=== PATIENT | male | born 1960 | race Caucasian/White ===

== ENCOUNTER 2018-07-05 02:22 | Emergency (ER) | payer MEDICAID, MEDICARE ==
[2018-07-05] MEDS ORDERED: Clindamycin HCl 150 MG Cap PO ONE ×2 (02:23→04:42)
[2018-07-05] MEDS ORDERED: Ondansetron 8 MG Tab.DIS PO ONE (02:49)
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
[2018-07-05] MEDS ORDERED: HYDROmorphone 2 MG/ML SDV IM ONE (03:32)
[2018-07-05] MEDS ORDERED: Metoclopramide 10 MG/2 ML SDV IM ONE (03:32)
[2018-07-05] MEDS ORDERED: diphenhydrAMINE 50 MG/ML SDV IM ONE (03:35)
[2018-07-05] MEDS ORDERED: Acetaminophen/HYDROcodone 325-5 MG Tab PO ONE (05:00)
[2018-07-05] MEDS ORDERED: Clindamycin HCl 150 MG Cap PO SCH (05:00)
[2018-07-05 05:40] VITALS: BP 152/68
--- NOTE | 2018-07-07 10:54 | CR ---
INDICATION: Left knee pain. Loose hardware, needs replacement, left TKA 2016. LEFT KNEE: Frontal, lateral, and patellar sunrise views of the left knee were obtained and revealed a femorotibial knee arthroplasty with mild hypertrophic changes at the patellar joint surfaces. No gross area of lucency was seen to strongly suggest loosening of the apparatus. There is a very minimal area of lucency anteriorly at the tibial component of the arthroplasty and also along the medial aspect. However, this is relatively minimal and may not be associated with loosening. Loosening could be confirmed, as felt to be clinically necessary, with 3-phase nuclear bone imaging. The study was otherwise unremarkable, except that there is a slight bulge at the suprapatellar bursa, raising question of minimal joint effusion. MTDD
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
== END 2018-07-05 05:25 | disposition home or self-care (01) ==
LOC: FB.ED 02:22
DX: S80.862A Insect bite (nonvenomous), left lower leg, initial encounter (principal); R20.3 Hyperesthesia; F32.9 Major depressive disorder, single episode, unspecified; Z96.652 Presence of left artificial knee joint; Z88.0 Allergy status to penicillin; Z91.030 Bee allergy status; Z79.899 Other long term (current) drug therapy; W57.XXXA Bitten or stung by nonvenomous insect and other nonvenomous arthropods, initial encounter
CPT/HCPCS: 73562; 73590; 81001; 96372; 99283; A9270; J1170; J1200; J2765